=== PATIENT | male | born 1980 | race Hispanic/Latino ===

== ENCOUNTER 2017-05-05 16:33 | Emergency (ER) | payer BC ==
[2017-05-05 16:39] VITALS: BMI 23.0
[2017-05-05 16:47] VITALS: TEMP 98.2
[2017-05-05 17:47] VITALS: RESP 18
--- NOTE | 2017-05-05 18:26 | ED PDOC ---
Arrival/HPI - General Chief Complaint: Anxiety Time Seen by Provider: 05/05/17 17:21 Historian: Patient - History of Present Illness Narrative History of Present Illness (Text): 05/05/17 18:22 A 36 year old male, whose past medical history includes anxiety attacks, presents to the emergency department after a possible anxiety attack. The patient reports he was [place] a cruise ship when he began to feel anxious, claustrophobic, nausea, chest pain, shortness of breath, and tingling to the fingers bilaterally. The patient also notes that he felt these same exact symptoms with his last anxiety attack. The patient denies any fever, abdominal pain, nausea, headache, back pain, or any other complaints at this time.the patient notes he also received a patch behind his ear from his primary doctor to prevent dizziness on cruise ship. Time/Duration: 4-6 hours Symptom Onset: Sudden Symptom Course: Unchanged Activities at Onset: Light Context: Other Past Medical History - Provider Review Nursing Documentation Reviewed: Yes - Psychiatric Hx Substance Use: No Other/Comment: claustrophobic - Surgical History Hx Cholecystectomy: Yes Family/Social History - Physician Review Nursing Documentation Reviewed: Yes Family/Social History: Unknown Family HX Smoking Status: Unknown If Ever Smoked Hx Alcohol Use: Yes Frequency of alcohol use: Socially Hx Substance Use: No Allergies/Home Meds Allergies/Adverse Reactions: Allergies tree nut Allergy (Verified 05/05/17 16:39) ANAPHYLAXIS Home Medications: Home Meds Medication Instructions Recorded Confirmed ALPRAZolam [Xanax] 0.25 mg PO PRN PRN 05/05/17 05/05/17 Review of Systems - Physician Review All systems were reviewed & negative as marked: Yes - Review of Systems Constitutional: absent: Fevers Respiratory: SOB Cardiovascular: Chest Pain Gastrointestinal: absent: Abdominal Pain, Nausea Musculoskeletal: absent: Back Pain Neurological: absent: Headache Physical Exam Vital Signs Reviewed: Yes Vital Signs Temp Pulse Resp BP Pulse Ox 05/05/17 17:47 71 18 122/71 100 05/05/17 16:47 98.2 F 67 20 124/78 100 Temperature: Afebrile Blood Pressure: Normal Pulse: Regular Respiratory Rate: Normal Appearance: Positive for: Well-Appearing, Non-Toxic, Comfortable Pain Distress: None Mental Status: Positive for: Alert and Oriented X 3 - Systems Exam Head: Present: Atraumatic, Normocephalic Pupils: Present: PERRL Extroacular Muscles: Present: EOMI Conjunctiva: Present: Normal Mouth: Present: Moist Mucous Membranes Neck: Present: Normal Range of Motion Respiratory/Chest: Present: Clear to Auscultation, Good Air Exchange. No: Respiratory Distress, Accessory Muscle Use Cardiovascular: Present: Regular Rate and Rhythm, Normal S1, S2. No: Murmurs Abdomen: Present: Normal Bowel Sounds. No: Tenderness, Distention, Peritoneal Signs Back: Present: Normal Inspection Upper Extremity: Present: Normal Inspection. No: Cyanosis, Edema Lower Extremity: Present: Normal Inspection. No: Edema Neurological: Present: GCS=15, CN II-XII Intact, Speech Normal, Motor Func Grossly Intact, Normal Sensory Function, Normal Cerebellar Funct, Norm Deep Tendon Reflexes, Gait Normal, Memory Normal, Normal 2Pt Descrimination Skin: Present: Warm, Dry, Normal Color. No: Rashes Psychiatric: Present: Alert, Oriented x 3, Normal Insight, Normal Concentration , Anxious Medical Decision Making ED Course and Treatment: 05/05/17 18:27 Impression: A 36 year old male with chest pain, shortness of breath, and anxiety. Differential Diagnosis included but are not limited to: Anxiety attack Plan: -- EKG -- Chest X-ray -- Ativan, Zofran -- Reassess and disposition Progress Notes: 05/05/17 18:31 EKG: Ordered, reviewed, and independently interpreted the EKG. Rate : 57 BPM Rhythm : Sinus Bradycardia Interpretation : No ST-segment elevations or depressions, no T-wave inversions, normal intervals. Comparison : No previous EKG for comparison. 05/05/17 19:46 Patient felt 100% better and no longer has symptoms. He has Xanax for him to take at home prescribed recently by his doctor. He was advised by me to return to the ED if symptoms worsen or any other concern. - RAD Interpretation Radiology Orders: 05/05/17 17:39 CXR [CHEST PORTABLE] [RAD] Stat - Medication Orders Current Medication Orders: Discontinued Medications Lorazepam (Ativan) 1 mg IVP ONCE ONE PRN Reason: Protocol Stop: 05/05/17 17:22 Last Admin: 05/05/17 17:46 Dose: 1 mg Ondansetron HCl (Zofran Inj) 4 mg IVP STAT STA Stop: 05/05/17 17:30 Last Admin: 05/05/17 17:46 Dose: 4 mg - Scribe Statement The provider has reviewed the documentation as recorded by the Scott Ybarra Provider Scribe Attestation: All medical record entries made by the Scribe were at my direction and personally dictated by me. I have reviewed the chart and agree that the record accurately reflects my personal performance of the history, physical exam, medical decision making, and the department course for this patient. I have also personally directed, reviewed, and agree with the discharge instructions and disposition. Disposition/Present on Arrival - Present on Arrival Any Indicators Present on Arrival: No History of DVT/PE: No History of Uncontrolled Diabetes: No Urinary Catheter: No History of Decub. Ulcer: No History Surgical Site Infection Following: None - Disposition Have Diagnosis and Disposition been Completed?: Yes Diagnosis: Anxiety Disposition: HOME/ ROUTINE Disposition Time: 19:47 Patient Plan: Discharge Patient Problems: Current Active Problems Problem Status Onset Anxiety Acute Condition: IMPROVED Discharge Instructions (ExitCare): Anxiety (ED) Additional Instructions: Mr Mallory, thank you for letting us take care of you today. Your provider was Dr. Rivas. You were treated for Anxiety. The emergency medical care you received today was directed at your acute symptoms. If you were prescribed any medication, please fill it and take as directed. It may take several days for your symptoms to resolve. Return to the Emergency Department if your symptoms worsen, do not improve, or if you have any other problems. Please contact your doctor or call one of the physicians/clinics you have been referred to that are listed on the Patient Visit Information form that is included in your discharge packet. Bring any paperwork you were given at discharge with you along with any medications you are taking to your follow up visit. Our treatment cannot replace ongoing medical care by a primary care provider (PCP) outside of the emergency department. Thank you for allowing the [facility] team to be part of your care today. If you had an X-Ray or CT scan: A Radiologist will review the ED reading if any change in treatment is needed we will contact you. If you had a blood, urine, or wound culture: It will take several days for the results, if any change in treatment is needed we will contact you. If you had an STI test: It will take 48 hours for the results. Please call after 1 week if you have not heard back. Referrals: [facility], [Primary Care Provider] - Follow up with primary Forms: [employer] ([place]ayan), WORK NOTE
[2017-05-05 20:44] VITALS: BP 124/71; PULSE 66; O2SAT 98
--- NOTE | 2017-05-06 07:44 | RAD ---
HISTORY: Chest pain COMPARISON: No prior. FINDINGS: LUNGS: The lungs are well inflated and clear. PLEURA: No significant pleural effusion identified, no pneumothorax apparent. CARDIOVASCULAR: Normal. OSSEOUS STRUCTURES: No significant abnormalities. VISUALIZED UPPER ABDOMEN: Normal. OTHER FINDINGS: None. IMPRESSION: No active pulmonary disease.
--- NOTE | 2017-05-06 10:12 | CARD ---
APPROVED REPORT EKG Measurement Heart [id number] ID [id number] <Conclusion> Sinus bradycardia Left axis deviation Inferior infarct, age undetermined Abnormal ECG
== END 2017-05-05 19:58 | disposition home or self-care (01) ==
LOC: ED 16:33 → MERGE 16:33 → ED 19:58
DX: F41.9 Anxiety disorder, unspecified (principal)
CPT/HCPCS: 71010; 93005; 96374; 96375; 99283; J2060; J2405